=== PATIENT | female | born 1975 | race Caucasian/White ===

== ENCOUNTER 2021-01-13 18:11 | Emergency (ER) | payer BC ==
[~2021-01-13] VITALS: Ht 165.1 cm; Wt 63.5 kg
[2021-01-13] MEDS ORDERED: OMEPRAZOLE 20 M20 M1 PO (18:25)
[2021-01-13 22:01] VITALS: BP 121/84
== END 2021-01-13 22:03 | disposition home or self-care (01) ==
LOC: ER 18:11
DX: F10.129 Alcohol abuse with intoxication, unspecified (principal); Y90.9 Presence of alcohol in blood, level not specified; F17.210 Nicotine dependence, cigarettes, uncomplicated; Z79.899 Other long term (current) drug therapy